=== PATIENT | female | born 1965 | race African-American/Black ===

== ENCOUNTER 2016-10-20 18:10 | Emergency (ER) | payer MEDICARE, OTHER ==
[~2016-10-20] VITALS: Ht 172.7 cm; Wt 76.8 kg
[~2016-10-20 18:10] MED LIST: AMLO-512 PO; BUPR100SR PO; CLON1 PO; HYDR25TA PO; LOSA50TA37 PO; METO100XL PO; OXYC10 PO; PERCT PO; XOPENEX
[2016-10-20 18:27] LABS: GLUCOSE COMMENT 1 Doctor Notified; GLUCOSE,POINT OF CARE 86 MG/DL (70-110)
[2016-10-20] MEDS ORDERED: ONDA4 PO (18:38)
[2016-10-20] MEDS ORDERED: ACYC200C PO (18:38)
[2016-10-20] MEDS ORDERED: OXYC-522 PO (18:38)
[2016-10-20] MEDS ORDERED: SENN-30 PO (18:38)
[2016-10-20] MEDS ORDERED: OS500 PO (18:38)
[2016-10-20] MEDS ORDERED: HYDR20I IV (18:38)
[2016-10-20] MEDS ORDERED: LOSA50TA37 PO (18:38)
[2016-10-20] MEDS ORDERED: GABA-531 PO (18:38)
[2016-10-20] MEDS ORDERED: SPIR25 PO (18:38)
[2016-10-20] MEDS ORDERED: TRAZ-144 PO (18:38)
[2016-10-20] MEDS ORDERED: BUPR100 PO (18:38)
[2016-10-20] MEDS ORDERED: CLON1 PO (18:38)
[2016-10-20] MEDS ORDERED: NALO25TA PO (18:38)
[2016-10-20] MEDS ORDERED: MONT10TA21 PO (18:38)
[2016-10-20] MEDS ORDERED: PANT40TA25 PO (18:38)
[2016-10-20] MEDS ORDERED: HYDR1LIQ5 PO (18:38)
[2016-10-20] MEDS ORDERED: METO50 PO (18:38)
[2016-10-20] MEDS ORDERED: METO-296 PO (18:38)
[2016-10-20] MEDS ORDERED: LURA40 PO (18:38)
[2016-10-20] MEDS ORDERED: SERT50TA12 PO (18:38)
[2016-10-20] MEDS ORDERED: ONDANSETRON HCL 4 MG/2 ML VIAL IVP ONE (20:45)
[2016-10-20] MEDS ORDERED: SODIUM CHLORIDE 0.9% 1,000 ML IV ONE (20:45)
[2016-10-20] MEDS ORDERED: HYDROmorphone 2 MG/ML SYRINGE IVP ONE (20:45)
[2016-10-20] MEDS ORDERED: PROCHLORPERAZINE EDISYLATE 5 MG/ML 2 ML VIAL IVP ONE (21:00)
[2016-10-20] MEDS ORDERED: VALPROATE SODIUM 500 MG in DEXTROSE 5%-WATER 50 ML IV ONE (21:00)
[2016-10-20 21:05] LABS: BASOPHILS % (AUTO) 0.5 % (0.0-2.0); EOSINOPHILS % (AUTO) 1.5 % (1.0-6.0); HEMOGLOBIN 11.3 g/dL (12.0-16.0); LYMPHOCYTES # (AUTO) 2.5 K/uL (1.0-4.8); LYMPHOCYTES % (AUTO) 39.4 % (22.0-44.0); MEAN CORPUSCULAR HEMOGLOBIN 28.7 pg (26.0-34.0); MEAN CORPUSCULAR HGB CONC 31.4 G/dL (31.0-37.0); MEAN CORPUSCULAR VOLUME 91 fL (80-100); MONOCYTES # (AUTO) 0.6 K/uL (0.1-1.0); MONOCYTES % (AUTO) 8.9 % (2.0-9.0); NEUTROPHILS # (AUTO) 3.2 K/uL (1.8-7.7); NEUTROPHILS % (AUTO) 49.7 % (40.0-70.0); PLATELET COUNT (AUTO) 276 K/uL (150-450); RED BLOOD CELL COUNT(AUTO) 3.93 MIL/uL (4.00-5.20); RED CELL DISTRIBUTION WIDTH 17.6 % (11.5-14.5); WHITE BLOOD COUNT (AUTO) 6.4 K/uL (4.5-11.0)
[2016-10-20 21:16] LABS: ANION GAP 8 mmol/L (8-16); CALCIUM, TOTAL 8.9 mg/dL (8.8-10.5); CARBON DIOXIDE 30 mmol/L (22-29); CHLORIDE 102 mmol/L (98-107); CREATININE 1.11 mg/dL (0.60-1.30); GLOMERULAR FILTR. RATE CALC > 60 mL/min (>60); POTASSIUM 3.9 mmol/L (3.5-5.1); SODIUM SERUM 140 mmol/L (136-145); UREA NITROGEN, BLOOD 12 mg/dL (7-18)
[2016-10-20 21:22] LABS: ALANINE AMINOTRANSFERASE 29 U/L (12-78); ALBUMIN 3.6 g/dL (3.4-5.0); ASPARTATE AMINOTRANSFERASE 28 U/L (15-37); BILIRUBIN,TOTAL 0.2 mg/dL (0.1-1.0); TOTAL PROTEIN, SERUM 7.4 g/dL (6.4-8.2)
[2016-10-20 21:36] LABS: RBC MORPHOLOGY COMMENT ABNORMAL RBC MORPH
[2016-10-21 00:53] VITALS: BP 162/100
== END 2016-10-21 01:03 | disposition home or self-care (01) ==
LOC: EMS 18:10
DX: S00.93XA Contusion of unspecified part of head, initial encounter (principal); R55 Syncope and collapse; G43.909 Migraine, unspecified, not intractable, without status migrainosus; R42 Dizziness and giddiness; I10 Essential (primary) hypertension; J45.909 Unspecified asthma, uncomplicated; W18.30XA Fall on same level, unspecified, initial encounter; Y93.89 Activity, other specified; Y92.89 Other specified places as the place of occurrence of the external cause; Y99.8 Other external cause status
CPT/HCPCS: 36415; 70450; 80053; 82962; 83690; 84484; 84703; 85025; 96361; 96374; 96375; 99285; J0780; J1170; J2405; J3490; J7030; J7060

== ENCOUNTER 2025-01-25 12:55 | Inpatient (IN) | payer OTHER ==
[~2025-01-25] VITALS: Ht 170.2 cm; Wt 73.6 kg
[~2025-01-25 12:55] MED LIST changes: +ACYC200C24 PO; -AMLO-512 PO; +BUPR-345 PO; -BUPR100SR PO; +CLON-595 PO; -CLON1 PO; +GABA-1181 PO; +HYDR1LIQ5 PO; +HYDR20I IV; +LOSA-382 PO; -LOSA50TA37 PO; +LURA40TA2 PO; +METO-296 PO; -METO100XL PO; +METO50 PO; +MONT-35 PO; +NALO25TA4 PO; +ONDA-104 PO; +OS500 PO; +OXYC-618 PO; -OXYC10 PO; +PANT-31 PO; -PERCT PO; +SENN-374 PO; +SERT-158 PO; +SPIR-37 PO; +TRAZ-252 PO; -XOPENEX
[2025-01-25] MEDS ORDERED: NALOXONE HCL 1 MG/ML 2 ML SYRINGE ONE (12:57)
[2025-01-25] MEDS ORDERED: HYDR4 PO (13:20)
[2025-01-25] MEDS ORDERED: ATOR40TA71 PO (13:20)
[2025-01-25] MEDS ORDERED: DEXT20CA4 PO (13:20)
[2025-01-25] MEDS ORDERED: VORT20TA PO (13:20)
[2025-01-25] MEDS ORDERED: CARV25TA32 PO (13:20)
[2025-01-25] MEDS ORDERED: ONDA-245 PO (13:20)
[2025-01-25] MEDS ORDERED: AMLO10TA55 PO (13:20)
[2025-01-25] MEDS ORDERED: HYDR25TA84 PO (13:20)
[2025-01-25] MEDS ORDERED: BUPR-49 PO (13:20)
[2025-01-25] MEDS ORDERED: OMEP20CA12 PO (13:20)
[2025-01-25] MEDS ORDERED: SUCR1TAB2 PO (13:20)
[2025-01-25] MEDS: NALOXONE HCL 1 MG/ML 2 ML SYRINGE IVP ONE ×2 (13:27→13:59)
[2025-01-25 13:48] LABS: PLATELET COUNT (AUTO) 194 K/uL (150-450); RED BLOOD CELL COUNT(AUTO) 3.21 MIL/uL (4.00-5.20); RED CELL DISTRIBUTION WIDTH 15.0 % (11.5-14.5); WHITE BLOOD COUNT (AUTO) 5.6 K/uL (4.5-11.0)
[2025-01-25 13:59] LABS: CALCIUM, TOTAL 8.4 mg/dL (8.8-10.5); CREATININE 1.29 mg/dL (0.60-1.30); GLOMERULAR FILTR. RATE CALC 52 mL/min (>60); GLUCOSE,RANDOM 95 mg/dL (70-110); SODIUM SERUM 138 mmol/L (136-145); UREA NITROGEN, BLOOD 18 mg/dL (7-18)
[2025-01-25 14:00] LABS: ALCOHOL, BLOOD (SERUM) < 3 mg/dL (0-10)
[2025-01-25 14:04] LABS: ASPARTATE AMINOTRANSFERASE 26 U/L (15-37); CREATINE KINASE, TOTAL ONLY 63 U/L (26-192); TOTAL PROTEIN, SERUM 6.3 g/dL (6.4-8.2)
[2025-01-25 14:05] LABS: TROPONIN I-HIGH SENSITIVITY 50 ng/L (<51)
[2025-01-25] MEDS: NALOXONE HCL 10 MG in DEXTROSE 5%-WATER 240 ML IV PRN (14:24)
[2025-01-25] MEDS ORDERED: ONDANSETRON HCL 4 MG/2 ML VIAL IVP PRN (16:45)
[2025-01-25] MEDS ORDERED: NALOXONE HCL 10 MG in DEXTROSE 5%-WATER 240 ML IV PRN (16:45)
[2025-01-25] MEDS: DEXTROSE 5%-LACTATED RINGERS 1,000 ML IV SCH (17:25)
[2025-01-25 17:54] LABS: APPEARANCE,URINE CLEAR (CLEAR); GLUCOSE, URINE (UA) NEGATIVE (NEGATIVE); LEUKOCYTE ESTERASE ,URINE NEGATIVE (NEGATIVE); NITRATE,URINE NEGATIVE (NEGATIVE); OCCULT BLOOD,URINE NEGATIVE (NEGATIVE); PH,URINE DRUG SCREEN 5.5 (5.0-8.0); SPECIFIC GRAVITIY, URINE 1.017 (1.003-1.030)
[2025-01-25 18:02] LABS: ALCOHOL, URINE DRUG SCREEN NEGATIVE (NEGATIVE); AMPHET/METH SCREEN,URINE POSITIVE (NEGATIVE); BARBITURATE SCREEN, URINE NEGATIVE (NEGATIVE); CANNABINOID SCREEN,URINE POSITIVE (NEGATIVE); COCAINE SCREEN,URINE NEGATIVE (NEGATIVE); METHADONE SCREEN, URINE NEGATIVE (NEGATIVE)
[2025-01-25 21:00] VITALS: BP 160/113; PULSE 70; RESP 28; TEMP 97.5; O2SAT 91
[2025-01-25] MEDS: ETHYL ALCOHOL 62% ANTISEPTIC NASAL SANITIZER 0.6 ML AMPUL NASAL SCH (21:00)
[2025-01-25] MEDS: DOCUSATE SODIUM 100 MG CAPSULE PO SCH (21:00)
[2025-01-25] MEDS: CHLORHEXIDINE GLUCONATE 2% TOWELETTE [2'S/6'S] TP SCH (22:37)
[2025-01-25] MEDS: ACETAMINOPHEN 325 MG TABLET PO PRN (22:37)
[2025-01-26] VITALS: BP 118/73; PULSE 83; RESP 16; TEMP 97.6; O2SAT 98
[2025-01-26 04:00] VITALS: BP 149/95; PULSE 61; RESP 16; TEMP 98.6; O2SAT 100
[2025-01-26 06:11] LABS: PLATELET COUNT (AUTO) 177 K/uL (150-450); RED BLOOD CELL COUNT(AUTO) 3.30 MIL/uL (4.00-5.20); RED CELL DISTRIBUTION WIDTH 15.1 % (11.5-14.5); WHITE BLOOD COUNT (AUTO) 5.2 K/uL (4.5-11.0)
[2025-01-26 06:19] LABS: CALCIUM, TOTAL 8.6 mg/dL (8.8-10.5); CREATININE 0.99 mg/dL (0.60-1.30); GLOMERULAR FILTR. RATE CALC > 60 mL/min (>60); GLUCOSE,RANDOM 90 mg/dL (70-110); SODIUM SERUM 140 mmol/L (136-145); UREA NITROGEN, BLOOD 12 mg/dL (7-18)
[2025-01-26] MEDS ORDERED: [UNRECOGNIZED DRUG - OTHER] PO SCH (09:00)
[2025-01-26] MEDS: OMEPRAZOLE 20 MG CAPSULE PO SCH (10:20)
[2025-01-26] MEDS: ATORVASTATIN CALCIUM 40 MG TABLET PO SCH (10:20)
[2025-01-26] MEDS: ENOXAPARIN SODIUM 40 MG/0.4 ML PF SYRINGE SQ SCH (10:20)
[2025-01-26] MEDS: GABAPENTIN 300 MG CAPSULE PO SCH (10:21)
[2025-01-26] MEDS: BuPROPion HCL XL 150 MG ER TABLET PO SCH (10:21)
[2025-01-26] MEDS: SUCRALFATE 1 GM TABLET PO SCH (10:21)
[2025-01-26] MEDS: LOSARTAN POTASSIUM 50 MG TABLET PO SCH (10:34)
[2025-01-26 11:56] VITALS: BP 150/91; PULSE 63; RESP 16; TEMP 98.2; O2SAT 97
[2025-01-26] MEDS ORDERED: PREGABALIN 50 MG CAPSULE PO PRN (12:45)
[2025-01-26] MEDS: RINGERS SOLUTION,LACTATED 1,000 ML IV ONE (15:10)
[2025-01-26] MEDS ORDERED: RINGERS SOLUTION,LACTATED 1,000 ML IV ONE (15:15)
[2025-01-26] MEDS: PREGABALIN 50 MG CAPSULE PO SCH (15:46)
[2025-01-26 16:17] VITALS: BP 109/78; PULSE 81; RESP 16; TEMP 98.2; O2SAT 99
[2025-01-26 20:00] VITALS: BP 152/89; PULSE 59; RESP 18; TEMP 99; O2SAT 97
[2025-01-26] MEDS: MELATONIN 5 MG TABLET PO SCH (21:05)
[2025-01-26] MEDS: MIRTAZAPINE 15 MG TABLET PO SCH (21:05)
[2025-01-27] VITALS (7 sets, daily range): BP systolic 110–158; BP diastolic 60–91; PULSE 67–84; RESP 17–18; TEMP 97.8–98.6; O2SAT 97–99
[2025-01-27 06:40] LABS: PLATELET COUNT (AUTO) 186 K/uL (150-450); RED BLOOD CELL COUNT(AUTO) 3.58 MIL/uL (4.00-5.20); RED CELL DISTRIBUTION WIDTH 15.4 % (11.5-14.5); WHITE BLOOD COUNT (AUTO) 5.2 K/uL (4.5-11.0)
[2025-01-27 06:50] LABS: CALCIUM, TOTAL 8.6 mg/dL (8.8-10.5); CREATININE 1.01 mg/dL (0.60-1.30); GLOMERULAR FILTR. RATE CALC > 60 mL/min (>60); GLUCOSE,RANDOM 93 mg/dL (70-110); SODIUM SERUM 143 mmol/L (136-145); UREA NITROGEN, BLOOD 11 mg/dL (7-18)
[2025-01-27] MEDS: DULoxetine HCL 20 MG CAPSULE PO SCH (10:11)
[2025-01-27] MEDS ORDERED: RINGERS SOLUTION,LACTATED 1,000 ML IV ONE (15:15)
[2025-01-28 04:05] VITALS: BP 139/72; PULSE 65; RESP 18; TEMP 98.1; O2SAT 98
[2025-01-28 08:00] VITALS: BP 137/81; PULSE 60; RESP 18; TEMP 98.2; O2SAT 98
[2025-01-28 12:00] VITALS: BP 105/69; PULSE 77; RESP 17; TEMP 97.7; O2SAT 99
== END 2025-01-28 15:15 | disposition home or self-care (01) | DRG 917 ==
LOC: EMS 13:03 → EDH 15:25 → ICU 20:20 → 5N 01-26 08:54
PROVIDERS: ADMIT Internal Medicine; ATTEND Internal Medicine
DX: T40.2X2A Poisoning by other opioids, intentional self-harm, initial encounter (principal); G92.9 Unspecified toxic encephalopathy; J69.0 Pneumonitis due to inhalation of food and vomit; J96.01 Acute respiratory failure with hypoxia; R45.851 Suicidal ideations; D57.1 Sickle-cell disease without crisis; F41.9 Anxiety disorder, unspecified; G89.4 Chronic pain syndrome; F20.9 Schizophrenia, unspecified; F32.A Depression, unspecified; D64.9 Anemia, unspecified; K21.9 Gastro-esophageal reflux disease without esophagitis; I11.0 Hypertensive heart disease with heart failure; I50.9 Heart failure, unspecified; I25.10 Atherosclerotic heart disease of native coronary artery without angina pectoris; J45.909 Unspecified asthma, uncomplicated; Z87.891 Personal history of nicotine dependence; Z79.899 Other long term (current) drug therapy; Z88.8 Allergy status to other drugs, medicaments and biological substances; Y92.89 Other specified places as the place of occurrence of the external cause
CPT/HCPCS: 71045; 80048; 80076; 80307; 81003; 82550; 83735; 83880; 84484; 85025; 87081; 92610; 93005; 96361; 96365; 96375; 99291; G0480; G0481; J1650; J2310; J7060; J7120; 36415-L1; 36415-TC